=== PATIENT | male | born 2000 | race Caucasian/White ===

== ENCOUNTER 2023-05-27 08:56 | Emergency (ER) | payer OTHER ==
[~2023-05-27] VITALS: Ht 170.2 cm; Wt 75.0 kg
[2023-05-27 10:03] LABS: BASO # 0.1 10^3/uL (0.0-0.2); BASO % 1.1 % (0.0-1.0); EOS # 0.3 10^3/uL (0.0-0.5); EOS % 5.1 % (0.0-3.0); HEMATOCRIT 45.3 % (42.0-52.0); HEMOGLOBIN 15.2 g/dl (13.5-17.5); LYMPH # 2.7 10^3/uL (1.5-5.0); LYMPH % 44.4 % (24.0-44.0); MEAN CORPUSCULAR HEMOGLOBIN 28.9 pg (27.0-33.0); MEAN CORPUSCULAR HGB CONC 33.6 g/dl (32.0-36.5); MEAN CORPUSCULAR VOLUME 86.1 fl (80.0-96.0); MONO # 0.4 10^3/uL (0.0-0.8); MONO % 6.7 % (2.0-8.0); NEUTROPHILS # 2.6 10^3/uL (1.5-8.5); NEUTROPHILS % 42.5 % (36.0-66.0); PLATELET COUNT, AUTOMATED 226 10^3/uL (150-450); RED BLOOD COUNT 5.26 10^6/uL (4.30-6.10); WHITE BLOOD COUNT 6.1 10^3/uL (4.0-10.0)
[2023-05-27 10:33] LABS: LIPASE 34 U/L (12-53)
[2023-05-27 10:35] LABS: ALBUMIN 4.2 G/DL (3.2-5.2); ALKALINE PHOSPHATASE 90 U/L (46-116); ALT/SGPT 12 U/L (7.0-40); AMYLASE 85 U/L (30-118); AST/SGOT 8 U/L (<34); BILIRUBIN,DIRECT 0.4 MG/DL (<0.4); BLOOD UREA NITROGEN 12 MG/DL (9-23); CALCIUM LEVEL 9.3 MG/DL (8.5-10.1); CARBON DIOXIDE LEVEL 30 MMOL/L (20-31); CHLORIDE LEVEL 106 MMOL/L (98-107); CREATININE FOR GFR 0.81 MG/DL (0.70-1.30); GLOMERULAR FILTRATION RATE > 60.0 (>60); GLUCOSE, FASTING 93 MG/DL (60-100); POTASSIUM SERUM 4.5 MMOL/L (3.5-5.1); SODIUM LEVEL 141 MMOL/L (136-145); TOTAL PROTEIN 7.1 G/DL (5.7-8.2)
[2023-05-27] MEDS ORDERED: SUCR1ORA PO (11:28)
[2023-05-27] MEDS ORDERED: PROT1TAB2 PO (11:28)
[2023-05-27 11:39] VITALS: BP 140/69; TEMP 97.8; O2SAT 100
== END 2023-05-27 11:52 | disposition home or self-care (01) ==
LOC: M ED 08:56
DX: R10.13 Epigastric pain (principal); F10.10 Alcohol abuse, uncomplicated; Z79.810 Long term (current) use of selective estrogen receptor modulators (SERMs); Z79.899 Other long term (current) drug therapy

== ENCOUNTER 2024-10-05 08:02 | Day surgery (SDC) | payer OTHER ==
[~2024-10-05] VITALS: Ht 167.6 cm; Wt 77.5 kg
[~2024-10-05 08:02] MED LIST: PROT1TAB2 PO; SUCR1ORA PO; VITA100093
[2024-10-05] MEDS ORDERED: ROCURONIUM BROMIDE 50MG/5ML VIAL As Ordered ONE (09:23)
[2024-10-05] MEDS ORDERED: fentaNYL 100 MCG/2 ML INJECTION As Ordered ONE (09:23)
[2024-10-05] MEDS ORDERED: propofoL 200 MG/20 ML VIAL As Ordered ONE (09:23)
[2024-10-05] MEDS ORDERED: MIDAZOLAM INJ 2MG/2ML VIAL As Ordered ONE (09:23)
[2024-10-05] MEDS ORDERED: LIDOCAINE 2% 100MG/5ML SDV (FOR ANES.) As Ordered ONE (09:23)
[2024-10-05] MEDS ORDERED: GLYCOPYRROLATE INJ 0.2 MG/ML 2 ML VIAL As Ordered ONE (11:17)
[2024-10-05] MEDS ORDERED: SUGAMMADEX SODIUM 500 MG/5 ML VIAL (BRIDION) As Ordered ONE (11:24)
[2024-10-05] MEDS ORDERED: ONDANSETRON 4MG 2ML VIAL As Ordered ONE (11:56)
[2024-10-05] MEDS: COCAINE 4% 4ML NASAL SOLUTION BTL As Ordered ONE (11:56)
[2024-10-05] MEDS: LIDOCAINE W/EPINEPHRINE 1% 20ML VIAL As Ordered ONE (11:56)
[2024-10-05] MEDS: OXYMETAZOLINE 0.05% NASAL SPRAY (AFRIN) As Ordered ONE (12:08)
[2024-10-05] MEDS ORDERED: ANEXSIA, NORCO 7.5MG/325MG TABLET(HYDROCODONE/APAP) PO PRN (12:55)
[2024-10-05] MEDS ORDERED: LR 1,000 ML IV SCH (13:00)
[2024-10-05 13:15] VITALS: BP 131/92; TEMP 97; O2SAT 98
== END 2024-10-05 14:15 | disposition home or self-care (01) ==
LOC: M SDC 08:02
PROVIDERS: ATTEND Otolaryngology
DX: J34.3 Hypertrophy of nasal turbinates (principal); J35.2 Hypertrophy of adenoids
CPT/HCPCS: 30140; 42831; C9143; J0665; J1100; J1596; J2250; J2405; J3010